=== PATIENT | male | born 1935 | race Caucasian/White ===

== ENCOUNTER 2016-08-19 21:06 | Emergency (ER) | payer MEDICARE, BC ==
[~2016-08-19] VITALS: Ht 177.8 cm; Wt 74.8 kg
--- NOTE | 2016-08-19 21:16 | NUR ---
PT AMBULATORY TO ER BED 5 PT STATES "FELT NUMB AND TINGLY 2 HOURS AFTER SHOWER AND ALMOST PASSED OUT" DENIES CP AND NO SOB NOTED. RR EVEN AND UNLABORED. NO NVD AT THIS TIME. PT NOT DIAPHORETIC. PT GOWNED AND PLACED ON MONITOR. WAITING FOR MD CRAWFORD.
--- NOTE | 2016-08-19 21:29 | NUR ---
DR. BECKER AT BEDSIDE FOR EVAL.
[2016-08-19 21:41] LABS: BASOPHILS # (AUTO) 0.1 /CMM (0.0-0.2); BASOPHILS % (AUTO) 0.3 % (0.0-2.0); EOSINOPHILS # (AUTO) 0.2 /CMM (0.0-0.7); EOSINOPHILS % (AUTO) 0.9 % (0.0-6.0); HEMATOCRIT 35 % (39-51); HEMOGLOBIN 11.5 g/dL (13.5-17.5); LYMPHOCYTES # (AUTO) 0.5 /CMM (0.8-4.8); LYMPHOCYTES % (AUTO) 3.1 % (20.0-44.0); MEAN CORPUSCULAR HEMOGLOBIN 29 PG (26.0-33.0); MEAN CORPUSCULAR HGB CONC 33 g/dl (31.0-36.0); MEAN CORPUSCULAR VOLUME 88 fL (80-96); MONOCYTES # (AUTO) 1.2 /CMM (0.1-1.30); MONOCYTES % (AUTO) 7.1 % (2.0-12.0); NEUTROPHILS # (AUTO) 14.8 /CMM (1.8-8.9); NEUTROPHILS % (AUTO) 88.6 % (43.0-81.0); PLATELET COUNT (AUTO) 205 /CMM (150-450); RDW COEFFICIENT OF VARIATION 13.7 (11.5-15.0); RED BLOOD CELL COUNT(AUTO) 3.92 MIL/uL (4.5-6.0); WHITE BLOOD COUNT (AUTO) 16.7 K/uL (4.3-11.0)
[2016-08-19 21:54] LABS: INR 0.96 (0.87-1.13); PROTHROMBIN TIME 10.2 SECS (9.5-12.7)
[2016-08-19 21:58] LABS: TROPONIN I < 0.017 ng/mL (0.00-0.056)
--- NOTE | 2016-08-19 22:18 | NUR ---
PT RETURNED FROM CT.
[2016-08-19 22:58] LABS: CALCIUM, SERUM 8.6 mg/dL (8.5-10.1); CARBON DIOXIDE 23 mmol/L (21-32); CHLORIDE 102 mmol/L (98-107); CREATININE 1.4 mg/dL (0.6-1.3); GLUCOSE 149 mg/dL (74-106); POTASSIUM 3.7 mmol/L (3.5-5.1); SODIUM SERUM 136 mmol/L (136-145); UREA NITROGEN, BLOOD 23 mg/dL (7-18)
[2016-08-19 23:05] LABS: ALANINE AMINOTRANSFERASE 27 U/L (12-78); ALKALINE PHOSPHATASE 86 U/L (46-116); ASPARTATE AMINOTRANSFERASE 14 U/L (15-37); BILIRUBIN,DIRECT 0.2 mg/dL (0.0-0.2); BILIRUBIN,TOTAL 0.8 mg/dL (0.2-1.0); TOTAL PROTEIN, SERUM 6.7 g/dL (6.4-8.2)
--- NOTE | 2016-08-19 23:25 | NUR ---
URINE COLLECTED. SENT TO LAB.
[2016-08-19 23:49] LABS: BILIRUBIN,URINE NEGATIVE (NEGATIVE); BLOOD, URINE 2+ Ery/uL (NEGATIVE); COLOR,URINE YELLOW (YELLOW); KETONES,URINE NEGATIVE (NEGATIVE); LEUKOCYTE ESTERASE ,URINE 2+ (NEGATIVE); NITRITE, URINE NEGATIVE (NEGATIVE); PROTEIN,URINE 1+ mg/dl (NEGATIVE); UGLUCOSE NEGATIVE (NEGATIVE); UROBILINOGEN,URINE 0.2 EU/dL (0.2)
[2016-08-19 23:51] LABS: APPEARANCE,URINE HAZY (CLEAR)
[2016-08-20 00:01] LABS: ADD URINE CULTURE YES; BACTERIA,URINE 1+ /HPF (None Seen); MUCUS,URINE Few /LPF (None Seen); SQUAMOUS EPITHELIAL CELL,UR Few /HPF (None Seen); WBC,URINE 51-80 /HPF (0-3)
--- NOTE | 2016-08-20 00:05 | NUR ---
DR. JIMENEZ AT BEDSIDE FOR EVAL.
--- NOTE | 2016-08-20 00:12 | NUR ---
IV removed. Catheter intact and site benign. Pressure and 4x4 applied to site. No bleeding noted. Patient discharged to home in stable condition. Written and verbal after care instructions given. Patient verbalizes understanding of instruction. ambulatory with a steady gait. instructed not to drive. pt verbalize understanding.
[2016-08-20 00:13] VITALS: BP 138/78
== END 2016-08-20 00:13 | disposition home or self-care (01) ==
LOC: ER 21:09
DX: R55 Syncope and collapse (principal); E11.9 Type 2 diabetes mellitus without complications; E78.00 Pure hypercholesterolemia, unspecified; F32.9 Major depressive disorder, single episode, unspecified; F41.9 Anxiety disorder, unspecified; I10 Essential (primary) hypertension; K21.9 Gastro-esophageal reflux disease without esophagitis; R20.2 Paresthesia of skin; R51 Headache
CPT/HCPCS: 36415; 70450; 71010; 80048; 80076; 81001; 82962; 84484; 85025; 85730; 93005; 99285; A4606; 81000-TC; 87086-TC; Z7610

== ENCOUNTER 2016-08-23 20:25 | Inpatient (IN) | payer MEDICARE, BC ==
[~2016-08-23] VITALS: Ht 177.8 cm; Wt 79.4 kg
--- NOTE | 2016-08-23 21:03 | NUR ---
PT BIB SELF C/O "THE SAME ON THURSDAY" INCLUDING "PALPITATIONS, BUT MY HEART WAS CHECKED OUT ON THURSDAY", "SHORTNESS OF BREATH BUT I CAN BREATH" AND "SEVERE NAUSEA". DENIES DIARRHEA. RESP EVEN UNLABORED. SKIN WARM NONDIAPHORETIC. PT REPORTS THAT HE HAS BEEN TAKING CIPRO 500MG PO BID X3 WEEKS. AMBULATORY WITH STEADY GAIT. IN ER BED 10 ON MONITOR.
[2016-08-23] MEDS ORDERED: ONDANSETRON 4 MG TAB.RAPDIS SL ONE (21:30)
[2016-08-23] MEDS ORDERED: ONDANSETRON 4 MG TAB.RAPDIS ONE (21:32)
[2016-08-23] MEDS ORDERED: ONDANSETRON HCL/PF 4 MG/2 ML VIAL ONE (22:07)
[2016-08-23] MEDS ORDERED: IV NS 0.9% 1,000 ML ONE (22:07)
[2016-08-23] MEDS ORDERED: IV SET PRIMARY 1 EA INFUS.SET MC ONE (22:07)
[2016-08-23] MEDS ORDERED: ONDANSETRON HCL/PF 4 MG/2 ML VIAL IVP ONE (22:30)
[2016-08-23] MEDS ORDERED: IV NS 0.9% 1,000 ML BAG IV ONE (22:30)
--- NOTE | 2016-08-23 22:35 | NUR ---
PT RESTING QUIETLY IN BED, REPORTED NAUSEA BUT NO FURTHER VOMITING PRIOR TO SECOND DOSE OF ZOFRAN. IV ACCESS ESTABLISHED, LABS DRAWN FROM LINE AND SENT TO LAB. URINE SAMPLE PROVIDED VIA CLEAN CATCH. PTS Consulting PAGED.
[2016-08-23 22:42] LABS: APPEARANCE,URINE SL CLOUDY (CLEAR); BILIRUBIN,URINE NEGATIVE (NEGATIVE); BLOOD, URINE 2+ Ery/uL (NEGATIVE); COLOR,URINE YELLOW (YELLOW); EOSINOPHILS # (AUTO) 0.1 /CMM (0.0-0.7); EOSINOPHILS % (AUTO) 0.4 % (0.0-6.0); HEMATOCRIT 31 % (39-51); HEMOGLOBIN 10.5 g/dL (13.5-17.5); KETONES,URINE NEGATIVE (NEGATIVE); LEUKOCYTE ESTERASE ,URINE 2+ (NEGATIVE); LYMPHOCYTES # (AUTO) 0.3 /CMM (0.8-4.8); LYMPHOCYTES % (AUTO) 1.9 % (20.0-44.0); MEAN CORPUSCULAR HEMOGLOBIN 30 PG (26.0-33.0); MEAN CORPUSCULAR HGB CONC 34 g/dl (31.0-36.0); MEAN CORPUSCULAR VOLUME 89 fL (80-96); MONOCYTES % (AUTO) 6.4 % (2.0-12.0); NEUTROPHILS # (AUTO) 13.6 /CMM (1.8-8.9); NEUTROPHILS % (AUTO) 91.3 % (43.0-81.0); NITRITE, URINE NEGATIVE (NEGATIVE); PH,URINE 5.5 (5.0-8.0); PLATELET COUNT (AUTO) 227 /CMM (150-450); PROTEIN,URINE 1+ mg/dl (NEGATIVE); RDW COEFFICIENT OF VARIATION 13.9 (11.5-15.0); RED BLOOD CELL COUNT(AUTO) 3.49 MIL/uL (4.5-6.0); UGLUCOSE NEGATIVE (NEGATIVE); UROBILINOGEN,URINE 0.2 EU/dL (0.2); WHITE BLOOD COUNT (AUTO) 14.9 K/uL (4.3-11.0)
[2016-08-23 22:53] LABS: CALCIUM, SERUM 8.1 mg/dL (8.5-10.1); POTASSIUM 3.8 mmol/L (3.5-5.1)
[2016-08-23 22:56] LABS: ADD URINE CULTURE YES; BACTERIA,URINE None seen /HPF (None Seen); WBC,URINE 21-50 /HPF (0-3)
[2016-08-23 22:57] LABS: SQUAMOUS EPITHELIAL CELL,UR Rare /HPF (None Seen)
[2016-08-23 22:58] LABS: OTHER CASTS, URINE WBC CASTS 1+ /LPF (None Seen)
[2016-08-23 23:00] LABS: ALBUMIN 2.4 g/dL (3.4-5.0); BILIRUBIN,DIRECT 0.1 mg/dL (0.0-0.2); BILIRUBIN,TOTAL 0.6 mg/dL (0.2-1.0); TOTAL PROTEIN, SERUM 6.5 g/dL (6.4-8.2)
--- NOTE | 2016-08-23 23:12 | NUR ---
US TECH AT BEDSIDE
[2016-08-23 23:14] LABS: INR 1.03 (0.87-1.13)
--- NOTE | 2016-08-23 23:42 | NUR ---
PANEL CALL PLACED TO [facility]; VERONIQUE LABORER ELECTROPLATING. ENDORSED TO YOLANDA FIRST AID DIRECTOR FOR ADMISSION.
[2016-08-23] MEDS ORDERED: CEFTRIAXONE 1GM BAG (ER ONLY) 50 ML IV ONE (23:43)
[2016-08-23] MEDS ORDERED: IV SET PRIMARY PUMP SET 1 EA INFUS.SET MC ONE (23:43)
--- NOTE | 2016-08-23 23:44 | NUR ---
called nursing sup. for ms bed
--- NOTE | 2016-08-23 23:46 | NUR ---
DR RODRIGUES ON PHONE WITH VERONIQUE WING
[2016-08-24] MEDS ORDERED: CEFTRIAXONE 1GM BAG (ER ONLY) 1 GM/50 ML PIGGYBACK IV ONE
[2016-08-24 00:15] VITALS: BP 139/72
--- NOTE | 2016-08-24 00:15 | NUR ---
RN NOTES: ADMITTED FROM ER VIA GURNEY ACCOMPANIED BY RN WITH DX:UTI,C/C NAUSEA X 5 HOURS AND ABDOMINAL PAIN,A/OX4,VERBALLY RESPONSIVE.PER PATIENT HE WAS IN [facility] LAST THURSDAY AND STARTED TAKING CIPRO,IT WAS INEFFECTIVE THEREFORE HE GO BACK TO ER TODAY.SKIN AND BODY ASSESSMENT DONE, SKIN IS INTACT EXCEPT FOR BROWN SKIN PIGMENTATION ALL OVER HIS BODY AND OLD SURGICAL SCAR ON LLE AND RIGHT SHOULDER,PERIPHERAL LINE LFA G#20,RECEIVED IV NS 1L,ROCEPHINE 1G/IV,ZOFRAN IV IN ER,NURSING CARE RENDERED, ORIENTED TO UNIT AND STAFF, FALL SAFETY, ASPIRATION AND UNIVERSAL PRECAUTION OBSERVE, BED LOW AND LOCKED, CALL LIGHT WITH IN REACH,SIDE RAILS UP X 2,BED ALARM ON.
--- NOTE | 2016-08-24 01:00 | NUR ---
RN NOTES: PATIENT REQUEST FOR SLEEPING PILL, HE HAS DISCOMFORT IN HIS RIGHT HAND PAIN 2/,HE SAID IF HE GET SLEEPING PILL HE WILL BE ABLE TO REST AND SLEEP;WHEN ASKED REGARDING HIS LIST OF HOME MEDICATION HE SAID HE WILL ASK HIS SON TO BRING THE LIST TOMORROW. -CALL MADE TO F/U ADMISSION ORDERS WITH KASSANDRA Doan(STRAND FORMING MACHINE OPERATOR),STILL AWAITING FOR HER ORDERS TO BE FINISH.
[2016-08-24] MEDS ORDERED: ZOLPIDEM TARTRATE 5 MG TABLET PO PRN (01:30)
[2016-08-24] MEDS ORDERED: ACETAMINOPHEN 325 MG TABLET PO PRN (01:30)
[2016-08-24] MEDS ORDERED: Z GUARD REMEDY 2 OZ OINT TP PRN (01:30)
[2016-08-24] MEDS ORDERED: ONDANSETRON HCL/PF 4 MG/2 ML VIAL IVP PRN (01:30)
[2016-08-24] MEDS ORDERED: MAGNESIUM HYDROXIDE 30 ML UDC PO PRN (01:30)
[2016-08-24] MEDS ORDERED: DEXTROSE 50%-WATER 50 ML DISP.SYRIN IV PRN (01:30)
[2016-08-24] MEDS ORDERED: IV NS 0.9% 1,000 ML ONE (02:00)
[2016-08-24] MEDS ORDERED: IV SET PRIMARY PUMP SET 1 EA INFUS.SET MC ONE (02:01)
[2016-08-24] MEDS ORDERED: ZOLPIDEM TARTRATE 5 MG TABLET ONE (02:04)
[2016-08-24] MEDS: IV NS 0.9% 1,000 ML IV PRN ×2 (02:10→14:56)
--- NOTE | 2016-08-24 02:15 | NUR ---
RN NOTES: - AROUND 0150 PRN SLEEPING PILL GIVEN PER PATIENT REQUEST . -IV NS AT 75 ML/HR STARTED AT 0213.
--- NOTE | 2016-08-24 03:10 | NUR ---
RN NOTES: IN DEEP SLEEP,IVF ONGOING, KEPT COMFORTABLE IN BED.NO PAIN OR DISCOMFORT.CALL LIGHT WITHIN REACH.
[2016-08-24] MEDS ORDERED: HYDROCODONE/APAP 5/325MG 1 EACH TABLET ONE (06:21)
[2016-08-24] MEDS: BLOOD SUGAR DIAGNOSTIC 1 EACH STRIP IN SCH ×4 (06:26→22:19)
[2016-08-24] MEDS: HYDROCODONE/APAP 5/325MG 1 EACH TABLET PO PRN ×4 (06:27→21:14)
[2016-08-24] MEDS: INSULIN REGULAR, HUMAN 100 UNIT/ML 3 ML VIAL SQ PRN ×2 (06:29→22:19)
--- NOTE | 2016-08-24 06:35 | NUR ---
RN NOTES: BLOOD SUGAR CHECK-147, INSULIN 2 UNITS GIVEN PER SCALE,COMPLAINED OF PAIN 7/10 ON THE RIGHT HAND, REQUEST FOR PRN PAIN MEDICATION BP-120/70 WA-70.KEPT COMFORTABLE IN BED.NEEDS ATTENDED.CALL LIGHT WITHIN REACH.
--- NOTE | 2016-08-24 06:55 | NUR ---
RN NOTES: PER PATIENT PAIN DECREASE 4/10, ABLE TO SLEEP AT SHORT INTERVALS, ENDORSE TO MORNING SHIFT FOR CONTINUITY OF CARE AND MONITORING FOR SIGN OF HYPER/HYPOGLYCEMIA.CALL LIGHT WITHIN REACH
[2016-08-24 07:57] LABS: MAGNESIUM 2.3 mg/dL (1.8-2.4); PHOSPHORUS 3.6 mg/dL (2.5-4.9)
[2016-08-24 08:00] VITALS: BP 116/49
--- NOTE | 2016-08-24 08:00 | NUR ---
MS RN NOTE PT. AWAKE, ALERT AND ORIENTED X4. DENIED PAIN AND SOB. VS STABLE. SIDE RAILS UP. CALL LIGHT WITHIN REACH. MONITOR CLOSELY.
[2016-08-24] MEDS ORDERED: FESO8TAB PO (08:01)
[2016-08-24] MEDS ORDERED: METO-302 PO (08:01)
[2016-08-24] MEDS ORDERED: ZOLP10TA6 PO (08:01)
[2016-08-24] MEDS ORDERED: MELO-270 PO (08:01)
[2016-08-24] MEDS ORDERED: METF500T4 PO (08:01)
[2016-08-24] MEDS ORDERED: PANT40TA4 PO (08:01)
[2016-08-24] MEDS ORDERED: ATOR40TA PO (08:01)
[2016-08-24] MEDS ORDERED: SILO8CAP PO (08:01)
[2016-08-24] MEDS ORDERED: LORA1TAB82 PO (08:01)
[2016-08-24] MEDS ORDERED: GABA-534 PO (08:01)
[2016-08-24] MEDS ORDERED: CITA20TA11 PO (08:01)
[2016-08-24] MEDS: PANTOPRAZOLE 40 MG TABLET.DR PO SCH (08:32)
[2016-08-24] MEDS ORDERED: ZOLPIDEM TARTRATE 10 MG TABLET PO PRN (09:30)
[2016-08-24] MEDS: METOPROLOL SUCCINATE 25 MG TAB.SR.24H PO SCH (12:45)
[2016-08-24 16:00] VITALS: BP 122/62
[2016-08-24] MEDS: CITALOPRAM HYDROBROMIDE 20 MG TABLET PO SCH (17:07)
--- NOTE | 2016-08-24 19:00 | NUR ---
CLOSING SHIFT PT. AWAKE, ALERT AND ORIENTED X4. VS STABLE. NO SOB. AMBULATED ON HALLWAY WITHOUT ANY DISTRESS. NS@75ML/HR IVF. CALL LIGHT WITHIN REACH. SIDE RAILS UP. MONITOR CLOSELY.
--- NOTE | 2016-08-24 19:35 | NUR ---
MS RN NOTE RECEIVED PATIENT FROM DAY SHIFT, PATIENT IS ALERT AND ORIENTEDX4, DENIES RESPIRATORY DISTRESS AND COMPLAINS OF PAIN ON HIS FINGERS. IV ON LEFT FA IS PATENT AND INTACT, NS IS RUNNING FOR DEHYDRATION. AMBULATORY. SRX2, BED IN LOW POSITION, CALL LIGHT WITHIN REACH, WILL CONTINUE TO MONITOR PATIENT.
[2016-08-24 19:49] VITALS: BP 124/63
--- NOTE | 2016-08-24 21:15 | NUR ---
MS RN NOTE PATIENT COMPLAINS OF PAIN ON HIS FINGER 12/08, NORCO 5/325MG PO GIVEN. WILL CONTINUE TO MONITOR EFFECTIVENESS.
[2016-08-24] MEDS ORDERED: SECONDARY IV SET 1 EA INFUS.SET MC ONE (22:09)
[2016-08-24] MEDS: CEFTRIAXONE 1 G in IV D5W 50 ML IV SCH (22:20)
[2016-08-24] MEDS ORDERED: CEFTRIAXONE 1 G VIAL IM SCH (23:00)
[2016-08-25] MEDS: IV NS 0.9% 1,000 ML IV PRN (05:56)
[2016-08-25] MEDS: BLOOD SUGAR DIAGNOSTIC 1 EACH STRIP IN SCH ×4 (06:07→22:12)
--- NOTE | 2016-08-25 06:24 | NUR ---
MS RN NOTE PATIENT IS RESTING IN BED COMFORTABLY, ON O2 NC CURRENTLY, OXYGEN SAT IS 94% WITH 3L/MIN, PT DENIES S/S OF RESPIRATORY DISTRESS AND PAIN. IV ON LEFT FA IS PATENT AND INTACT, FLUID IS RUNNING. WILL ENDORSE TO DAY SHIFT NURSE FOR DAILY.
[2016-08-25 07:11] LABS: CALCIUM, SERUM 7.6 mg/dL (8.5-10.1); CREATININE 2.3 mg/dL (0.6-1.3); POTASSIUM 4.5 mmol/L (3.5-5.1)
[2016-08-25 07:33] LABS: BASOPHILS % (AUTO) 0.1 % (0.0-2.0); EOSINOPHILS # (AUTO) 0.3 /CMM (0.0-0.7); HEMATOCRIT 30 % (39-51); LYMPHOCYTES # (AUTO) 0.5 /CMM (0.8-4.8); LYMPHOCYTES % (AUTO) 3.6 % (20.0-44.0); MEAN CORPUSCULAR HEMOGLOBIN 30 PG (26.0-33.0); MEAN CORPUSCULAR HGB CONC 33 g/dl (31.0-36.0); MEAN CORPUSCULAR VOLUME 89 fL (80-96); MONOCYTES % (AUTO) 7.3 % (2.0-12.0); NEUTROPHILS # (AUTO) 11.6 /CMM (1.8-8.9); PLATELET COUNT (AUTO) 235 /CMM (150-450); RDW COEFFICIENT OF VARIATION 13.7 (11.5-15.0); RED BLOOD CELL COUNT(AUTO) 3.38 MIL/uL (4.5-6.0); WHITE BLOOD COUNT (AUTO) 13.4 K/uL (4.3-11.0)
[2016-08-25 08:00] VITALS: BP 134/69
--- NOTE | 2016-08-25 08:10 | NUR ---
MS RN RECEIVED ON BED, AWAKE,ALERT,ORIENTED X4,NOT IN ANY FORM OF DISTRESS, RESPIRATIONS EVEN AND UNLABORED,NO SOB NOTED. LUNGS ARE CLEAR,ABDOMEN SOFT,POSITIVE BOWEL SOUNDS, DENIES PAIN AT THIS TIME,ALL NEEDS ATTENDED.
--- NOTE | 2016-08-25 08:55 | NUR ---
MS BLUM BREAKFAST SERVED,DUE MEDS GIVEN,TOLERATED WELL.
[2016-08-25] MEDS ORDERED: PANTOPRAZOLE 40 MG TABLET.DR PO SCH (09:00)
[2016-08-25] MEDS: PANTOPRAZOLE 40 MG TABLET.DR PO SCH (09:04)
[2016-08-25] MEDS: GABAPENTIN 300 MG CAPSULE PO SCH (09:04)
[2016-08-25] MEDS: CITALOPRAM HYDROBROMIDE 20 MG TABLET PO SCH ×2 (09:04→17:42)
[2016-08-25] MEDS: ATORVASTATIN 40 MG TABLET PO SCH (09:04)
[2016-08-25] MEDS: METOPROLOL SUCCINATE 25 MG TAB.SR.24H PO SCH (09:05)
[2016-08-25] MEDS ORDERED: NA PHOS,M-B/NA PHOS,DI-BA 1 EA ENEMA RC PRN (14:00)
[2016-08-25 16:00] VITALS: BP 146/81
--- NOTE | 2016-08-25 18:00 | NUR ---
ms rn bs 0 103 - no coverage given.
--- NOTE | 2016-08-25 19:00 | NUR ---
rn fleat enema given, effective w/ output.
--- NOTE | 2016-08-25 19:35 | NUR ---
MS RN NOTE RECEIVED PATIENT FROM DAY SHIFT, PATIENT IS ALERT AND ORIENTEDX4, DENIES RESPIRATORY DISTRESS OR PAIN AT THIS TIME. PATIENT HAD ENEMA, COMPLAINS OF DISCOMFORT ON ABDOMEN, MADE BM WELL. IV ON LEFT FA IS PATENT AND INTACT, HL ONLY. SRX2, BED IN LOW POSITION, CALL LIGHT WITHIN REACH, WILL CONTINUE TO MONITOR PATIENT.
[2016-08-25] MEDS: HYDROCODONE/APAP 5/325MG 1 EACH TABLET PO PRN (20:11)
[2016-08-25 20:34] VITALS: BP 147/82
[2016-08-25] MEDS: CEFTRIAXONE 1 G in IV D5W 50 ML IV SCH (22:12)
[2016-08-26] MEDS: BLOOD SUGAR DIAGNOSTIC 1 EACH STRIP IN SCH (05:59)
[2016-08-26] MEDS: HYDROCODONE/APAP 5/325MG 1 EACH TABLET PO PRN (06:00)
--- NOTE | 2016-08-26 06:00 | NUR ---
MS RN NOTE PATIENT COMPLAINS OF SEVERE HEADACHE, NORCO 5-325 PO GIVEN. WILL MONITOR FOR EFFECTIVENESS.
--- NOTE | 2016-08-26 06:46 | NUR ---
MS RN NOTE PATIENT IS RESTING IN BED COMFORTABLY, STILL COMPLAINS OF MILD HEADACHE, IV ON LEFT WRIST IS PATENT AND INTACT, HL ONLY. NO S/S OF RESPIRATORY DISTRESS. WILL ENDORSE TO DAY SHIFT FOR DAILY.
[2016-08-26 07:28] LABS: BASOPHILS % (AUTO) 0.1 % (0.0-2.0); EOSINOPHILS # (AUTO) 0.2 /CMM (0.0-0.7); EOSINOPHILS % (AUTO) 1.6 % (0.0-6.0); HEMATOCRIT 30 % (39-51); HEMOGLOBIN 9.9 g/dL (13.5-17.5); LYMPHOCYTES # (AUTO) 0.6 /CMM (0.8-4.8); LYMPHOCYTES % (AUTO) 4.6 % (20.0-44.0); MEAN CORPUSCULAR HEMOGLOBIN 30 PG (26.0-33.0); MEAN CORPUSCULAR HGB CONC 34 g/dl (31.0-36.0); MEAN CORPUSCULAR VOLUME 90 fL (80-96); MONOCYTES # (AUTO) 1.1 /CMM (0.1-1.30); MONOCYTES % (AUTO) 8.7 % (2.0-12.0); NEUTROPHILS # (AUTO) 10.8 /CMM (1.8-8.9); PLATELET COUNT (AUTO) 245 /CMM (150-450); RDW COEFFICIENT OF VARIATION 13.7 (11.5-15.0); WHITE BLOOD COUNT (AUTO) 12.7 K/uL (4.3-11.0)
[2016-08-26 07:30] LABS: CALCIUM, SERUM 8.1 mg/dL (8.5-10.1); CREATININE 2.3 mg/dL (0.6-1.3); POTASSIUM 4.1 mmol/L (3.5-5.1)
--- NOTE | 2016-08-26 07:48 | NUR ---
MS RN OPENING NOTES: PATIENT IS RESTING IN BED COMFORTABLY. PATIENT ALERT AND ORIENTED X4. IV ON LEFT WRIST IS PATENT AND INTACT, HL ONLY. NO S/S OF SOB AND DISTRESS RESPIRATORY DISTRESS. PATIENT AMBULATORY AND SKIN INTACT.
[2016-08-26 07:50] VITALS: BP 142/66
[2016-08-26] MEDS: PANTOPRAZOLE 40 MG TABLET.DR PO SCH (08:07)
[2016-08-26 08:08] VITALS: BP 142/66
[2016-08-26] MEDS: METOPROLOL SUCCINATE 25 MG TAB.SR.24H PO SCH (08:08)
[2016-08-26] MEDS: GABAPENTIN 300 MG CAPSULE PO SCH (08:09)
[2016-08-26] MEDS: CITALOPRAM HYDROBROMIDE 20 MG TABLET PO SCH (08:09)
[2016-08-26] MEDS: ATORVASTATIN 40 MG TABLET PO SCH (08:09)
--- NOTE | 2016-08-26 10:50 | NUR ---
MS CHILDCARE PROVIDER NOTES Discharge instructions given to patient and able to understand instructions. Patient is alert and oriented x 4 verbally responsive and able to make all needs known. Dr. Quiñonez on site and ordered for discharge patient. Prescription copied and given to patient. Health education provided. Ambulatory. IV discontinued and pressured applied to prevent from bleeding. Patient left via ambulatory and in stable condition. Vital signs checked and recorded. No complaint of pain or discomfort, nor chest pain. MD and charge nurse aware. Patient picked up by his son Steve. Skin is intact. Patient already had his vaccinations, pneumonia and flu vaccine 01/2016.
== END 2016-08-26 10:50 | disposition home or self-care (01) | DRG 689 ==
LOC: ER 20:27 → MED 08-24 00:05
PROVIDERS: ADMIT Nurse Practitioner Acute Care; ATTEND Student in an Organized Health Care Education/Training Program
DX: N39.0 Urinary tract infection, site not specified (principal); N17.0 Acute kidney failure with tubular necrosis; E78.5 Hyperlipidemia, unspecified; K80.20 Calculus of gallbladder without cholecystitis without obstruction; E11.22 Type 2 diabetes mellitus with diabetic chronic kidney disease; I12.9 Hypertensive chronic kidney disease with stage 1 through stage 4 chronic kidney disease, or unspecified chronic kidney disease; N18.9 Chronic kidney disease, unspecified; E11.42 Type 2 diabetes mellitus with diabetic polyneuropathy; N40.1 Benign prostatic hyperplasia with lower urinary tract symptoms; N39.498 Other specified urinary incontinence; K59.09 Other constipation; K21.9 Gastro-esophageal reflux disease without esophagitis; Z79.84 Long term (current) use of oral hypoglycemic drugs; Z86.73 Personal history of transient ischemic attack (TIA), and cerebral infarction without residual deficits
CPT/HCPCS: 36415; 76705-TC; 80048-TC; 80061-TC; 80076-TC; 81000-TC; 82150-TC; 82962-TC; 83690-TC; 83735-TC; 84100-TC; 85025-TC; 85730-TC; 87040-TC; 87081-TC; 87086-TC; 87186-TC; 94799-TC; J0696; J1815; J2405; J7030; J7060; Q0162; Z7610

== ENCOUNTER 2016-11-28 12:16 | Outpatient (CLI) | payer MEDICARE, BC ==
[~2016-11-28 12:16] MED LIST: ATOR40TA PO; CITA20TA11 PO; FESO8TAB PO; GABA-534 PO; LORA1TAB82 PO; MELO-270 PO; METF500T4 PO; METO-302 PO; PANT40TA4 PO; SILO8CAP PO; ZOLP10TA6 PO
[2016-11-28 13:16] LABS: CHOLESTEROL 116 mg/dL (<200); CREATINE KINASE, TOTAL 69 U/L (39-308); HDL CHOLESTEROL 53 mg/dL (40-60); LDL 45 mg/dL (0-99); TRIGLYCERIDES 55 mg/dL (30-150)
== END 2016-11-28 23:59 | disposition home or self-care (01) ==
LOC: LAB 12:16
DX: E78.5 Hyperlipidemia, unspecified (principal)
CPT/HCPCS: 36415; 80061-TC; 82550-TC

== ENCOUNTER 2019-03-06 18:10 | Emergency (ER) | payer MEDICARE, BC ==
[~2019-03-06] VITALS: Ht 175.3 cm; Wt 84.4 kg
[~2019-03-06 18:10] MED LIST changes: -CITA20TA11 PO; +CITA20TA16 PO; +LORA-259 PO; -LORA1TAB82 PO; +MELO-105 PO; -MELO-270 PO; +METF-440 PO; -METF500T4 PO; -METO-302 PO; +METO-356 PO; -SILO8CAP PO; +SILO8CAP2 PO
[2019-03-06] MEDS ORDERED: ONDANSETRON HCL/PF 4 MG/2 ML VIAL IVP ONE (18:30)
[2019-03-06] MEDS ORDERED: IV NS 0.9% 1,000 ML BAG IV ONE (18:30)
--- NOTE | 2019-03-06 18:30 | NUR ---
DENISA, FROM [facility], C/O DIZZINESS HAD A NEAR SYNCOPAL EPISODE PER EMS, TOOK EDIBLES AND WINE. ON ROOM AIR, BREATHING EVENLY AND UNLABORED. CONNECTED TO THE MONITOR AND PULSE OX. KEPT COMFORTABLE, WILL CONTINUE TO MONITOR ACCORDINGLY.
[2019-03-06] MEDS ORDERED: ONDANSETRON HCL/PF 4 MG/2 ML VIAL ONE (18:39)
[2019-03-06 18:53] LABS: BASOPHILS % (AUTO) 0.5 % (0.0-2.0); EOSINOPHILS % (AUTO) 3.4 % (0.0-6.0); HEMATOCRIT 38 % (39-51); LYMPHOCYTES # (AUTO) 2.7 /CMM (0.8-4.8); LYMPHOCYTES % (AUTO) 29.2 % (20.0-44.0); MEAN CORPUSCULAR HGB CONC 34 g/dl (31.0-36.0); MEAN CORPUSCULAR VOLUME 92 fL (80-96); MONOCYTES # (AUTO) 1.1 /CMM (0.1-1.30); MONOCYTES % (AUTO) 11.6 % (2.0-12.0); NEUTROPHILS # (AUTO) 5.1 /CMM (1.8-8.9); NEUTROPHILS % (AUTO) 55.3 % (43.0-81.0); PLATELET COUNT (AUTO) 193 /CMM (150-450); RED BLOOD CELL COUNT(AUTO) 4.13 MIL/uL (4.5-6.0); WHITE BLOOD COUNT (AUTO) 9.1 K/uL (4.3-11.0)
[2019-03-06 19:00] LABS: CALCIUM, SERUM 8.7 mg/dL (8.5-10.1); CARBON DIOXIDE 23 mmol/L (21-32); CHLORIDE 105 mmol/L (98-107); CREATININE 1.8 mg/dL (0.6-1.3); GLUCOSE 135 mg/dL (74-106); POTASSIUM 3.9 mmol/L (3.5-5.1); SODIUM SERUM 140 mmol/L (136-145); UREA NITROGEN, BLOOD 26 mg/dL (7-18)
[2019-03-06 19:06] LABS: ALANINE AMINOTRANSFERASE 25 U/L (12-78); ALBUMIN 3.6 g/dL (3.4-5.0); ALKALINE PHOSPHATASE 84 U/L (46-116); ASPARTATE AMINOTRANSFERASE 21 U/L (15-37); BILIRUBIN,DIRECT 0.2 mg/dL (0.0-0.2); BILIRUBIN,TOTAL 0.8 mg/dL (0.2-1.0)
--- NOTE | 2019-03-06 19:08 | NUR ---
report given to Missy BLUM for lilly.
--- NOTE | 2019-03-06 19:19 | NUR ---
RECEIVED REPORT FORM KAYLIN BLUM, PT IN BED, RESTING COMFORTABLY, NO DISCOMFORT AT THIS TIME, AWAITING TRANSPORT ARRANGEMENT BACK TO [facility] Addendum: 03/06/19 at 1920 by RAZIA RECEIVED PT REPORT FROM KAYLIN BLUM, PT IN BED RESTING COMFORTABLY, WAITING FOR XRAY RESULTS
--- NOTE | 2019-03-06 20:38 | NUR ---
Patient discharged to home in stable condition. Written and verbal after care instructions given. Patient verbalizes understanding of instruction.
[2019-03-06 20:39] VITALS: BP 105/53
== END 2019-03-06 20:39 | disposition home or self-care (01) ==
LOC: ER 18:14
DX: E86.0 Dehydration (principal); R55 Syncope and collapse; T51.91XA Toxic effect of unspecified alcohol, accidental (unintentional), initial encounter; I10 Essential (primary) hypertension; E78.00 Pure hypercholesterolemia, unspecified; K21.9 Gastro-esophageal reflux disease without esophagitis; N40.0 Benign prostatic hyperplasia without lower urinary tract symptoms; E11.9 Type 2 diabetes mellitus without complications; F32.9 Major depressive disorder, single episode, unspecified; F41.9 Anxiety disorder, unspecified; G47.00 Insomnia, unspecified; Z98.890 Other specified postprocedural states; Z79.899 Other long term (current) drug therapy; Z79.84 Long term (current) use of oral hypoglycemic drugs
CPT/HCPCS: 36415; 71045; 80048; 80076; 82962; 84484; 85025; 85730; 93005; 96361; 96374; 99284; J2405; J7030

== ENCOUNTER 2021-04-21 12:42 | Emergency (ER) | payer MEDICARE, BC ==
[~2021-04-21] VITALS: Ht 175.3 cm; Wt 79.4 kg
[~2021-04-21 12:42] MED LIST changes: -METO-356 PO; +METO25TA4 PO; -PANT40TA4 PO; +PANT40TA49 PO
--- NOTE | 2021-04-21 13:01 | NUR ---
BIB FAMILY MEMBER FOR C/O L KNEE PAIN "BUCKLLED IT" WHILE PLAYING PICKLEBALL 1 1/2 AGO. RATES PAIN 09/08. NOTED THAT LEFT KNEE HAS LIGHT SWELLING. WILL CONTINUE TO MONITOR THE PATIENT.
--- NOTE | 2021-04-21 13:04 | NUR ---
DR SPENCER AT THE BEDSIDE
--- NOTE | 2021-04-21 13:37 | NUR ---
X-RAY TECH AT THE BEDSIDE
[2021-04-21 13:58] VITALS: BP 137/84
--- NOTE | 2021-04-21 13:58 | NUR ---
Patient discharged to home in stable condition. Written and verbal after care instructions given. Patient verbalizes understanding of instruction.
== END 2021-04-21 13:58 | disposition home or self-care (01) ==
LOC: ER 12:49
DX: S83.8X2A Sprain of other specified parts of left knee, initial encounter (principal); I10 Essential (primary) hypertension; E78.00 Pure hypercholesterolemia, unspecified; K21.9 Gastro-esophageal reflux disease without esophagitis; E11.9 Type 2 diabetes mellitus without complications; F32.9 Major depressive disorder, single episode, unspecified; F41.9 Anxiety disorder, unspecified; G47.00 Insomnia, unspecified; Z98.890 Other specified postprocedural states; Z79.899 Other long term (current) drug therapy; Z79.84 Long term (current) use of oral hypoglycemic drugs; X50.1XXA Overexertion from prolonged static or awkward postures, initial encounter; Y93.89 Activity, other specified; Y92.89 Other specified places as the place of occurrence of the external cause; Y99.8 Other external cause status
CPT/HCPCS: 73564-TC

== ENCOUNTER 2022-03-08 12:23 | Inpatient (IN) | payer MEDICARE, BC ==
[~2022-03-08] VITALS: Ht 177.8 cm; Wt 77.6 kg
--- NOTE | 2022-03-08 13:08 | NUR ---
IV ESTABLISHED R AC 20G. LABS DRAWN AND COLLECTED AT BEDSIDE.
--- NOTE | 2022-03-08 13:09 | NUR ---
FRANTZ STEPHENSON COLLECTED AND SENT
[2022-03-08] MEDS ORDERED: LIDOCAINE 1%-EPI 1:100,000 20 ML VIAL ONE (13:11)
--- NOTE | 2022-03-08 13:11 | NUR ---
PT TAKEN TO CT VIA RADHA
[2022-03-08 13:12] LABS: BASOPHILS % (AUTO) 0.4 % (0.0-2.0); EOSINOPHILS % (AUTO) 1.4 % (0.0-6.0); HEMATOCRIT 39 % (39-51); HEMOGLOBIN 13.1 g/dL (13.5-17.5); LYMPHOCYTES # (AUTO) 0.9 K/uL (0.8-4.8); LYMPHOCYTES % (AUTO) 11.2 % (20.0-44.0); MEAN CORPUSCULAR HGB CONC 33 g/dl (31.0-36.0); MEAN CORPUSCULAR VOLUME 92 fL (80-96); MONOCYTES # (AUTO) 0.5 K/uL (0.1-1.30); MONOCYTES % (AUTO) 6.5 % (2.0-12.0); NEUTROPHILS # (AUTO) 6.3 K/uL (1.8-8.9); NEUTROPHILS % (AUTO) 80.5 % (43.0-81.0); PLATELET COUNT (AUTO) 189 K/uL (150-450); RED BLOOD CELL COUNT(AUTO) 4.28 MIL/uL (4.5-6.0); WHITE BLOOD COUNT (AUTO) 7.8 K/uL (4.3-11.0)
--- NOTE | 2022-03-08 13:18 | NUR ---
PT RETURNED FROM CT VIA [facility]
[2022-03-08 13:30] LABS: CALCIUM, SERUM 8.9 mg/dL (8.5-10.1); CARBON DIOXIDE 27 mmol/L (21-32); CHLORIDE 107 mmol/L (98-107); CREATININE 1.5 mg/dL (0.6-1.3); GLUCOSE 144 mg/dL (74-106); POTASSIUM 4.3 mmol/L (3.5-5.1); SODIUM SERUM 141 mmol/L (136-145); UREA NITROGEN, BLOOD 20 mg/dL (7-18)
[2022-03-08] MEDS ORDERED: ACETAMINOPHEN 325 MG TABLET PO ONE (13:30)
[2022-03-08] MEDS ORDERED: LIDOCAINE 1%-EPI 1:100,000 20 ML VIAL TP ONE (13:30)
--- NOTE | 2022-03-08 13:30 | NUR ---
MOVE SHEET SUBMITTED.
[2022-03-08 13:35] LABS: ALANINE AMINOTRANSFERASE 28 U/L (12-78); ALBUMIN 3.5 g/dL (3.4-5.0); ALKALINE PHOSPHATASE 85 U/L (46-116); ASPARTATE AMINOTRANSFERASE 13 U/L (15-37); BILIRUBIN,DIRECT 0.1 mg/dL (0.0-0.2); BILIRUBIN,TOTAL 0.6 mg/dL (0.2-1.0); TOTAL PROTEIN, SERUM 7.1 g/dL (6.4-8.2)
[2022-03-08] MEDS ORDERED: ACETAMINOPHEN 325 MG TABLET ONE (13:37)
--- NOTE | 2022-03-08 13:51 | NUR ---
X RAY AT BEDSIDE
[2022-03-08] MEDS ORDERED: IV NS 0.9% 1,000 ML IV ONE (14:00)
--- NOTE | 2022-03-08 14:01 | NUR ---
GOT BED 101
--- NOTE | 2022-03-08 14:13 | NUR ---
[facility] CALLED DARKLIGHT INSPECTOR PAGED.
--- NOTE | 2022-03-08 14:38 | NUR ---
REPORT GIVEN TO SOON FOR DAILY
[2022-03-08] MEDS ORDERED: Z GUARD REMEDY 4 OZ OINT TP PRN (15:00)
[2022-03-08] MEDS ORDERED: MAG HYDROX/AL HYDROX/SIMETH 30 ML UDC PO PRN (15:00)
[2022-03-08] MEDS ORDERED: ONDANSETRON HCL/PF 4 MG/2 ML VIAL IVP PRN (15:00)
[2022-03-08] MEDS ORDERED: IV NS 0.9% 1,000 ML IV PRN (15:00)
[2022-03-08] MEDS ORDERED: ACETAMINOPHEN 325 MG TABLET PO PRN (15:00)
[2022-03-08] MEDS ORDERED: MAGNESIUM HYDROXIDE 30 ML UDC PO PRN (15:00)
--- NOTE | 2022-03-08 15:30 | NUR ---
RN NOTE RECEIVED PT ON RADHA FROM ED. PATIENT IS AOX3, BREATHING ON RA AT 97%. NO SOB OR DISTRESS NOTED AT THIS TIME. VS TAKEN. PT DENIES ANY PAIN AT THIS TIME. IV SITE RAC #22G FLUSHED AND INTACT. PHOTOS TAKEN AND PLACED IN CHART. URINAL AT BEDSIDE. ALL SAFETY MEASURES IN PLACE, BED LOCKED IN LOWEST POSITION. WILL CONTINUE TO MONITOR THROUGHOUT SHIFT
[2022-03-08] MEDS: CITALOPRAM HYDROBROMIDE 20 MG TABLET PO SCH (17:46)
--- NOTE | 2022-03-08 19:30 | NUR ---
BARREL DEDENTING MACHINE OPERATOR OPENING NOTE RECEIVED PT AWAKE IN BED, A/O 3-4 . ON RA > 94%. NO SOB OR DISTRESS NOTED AT THIS TIME. IV ACCESS RAC 20#, INTACT AND PATENT, VSS. PT DENIES ANY PAIN AT THIS TIME. HEAD LACERATION. PATIENT ABLE TO MAKE NEEDS KNOWN. ALL SAFETY MEASURES IN PLACE, BED LOCKED IN LOWEST POSITION. WILL CONTINUE TO MONITOR THROUGHOUT SHIFT
--- NOTE | 2022-03-08 19:31 | NUR ---
RN CLOSING NOTE PATIENT IS AOX3, ABLE TO MAKE NEEDS KNOWN. BREATHING ON RA AT 97%. NO SOB OR DISTRESS NOTED AT THIS TIME. VS WNL. PT DENIES ANY PAIN AT THIS TIME. IV SITE RAC #22G FLUSHED AND INTACT. URINAL AT BEDSIDE. ALL SAFETY MEASURES IN PLACE, BED LOCKED IN LOWEST POSITION. WILL ENDORSE CONTINUITY OF CARE TO ASSISTANT TO THE VICE PRESIDENT.
[2022-03-08 20:00] VITALS: BP 120/60
--- NOTE | 2022-03-08 20:52 | NUR ---
RN NOTE CALLED PATIENTS CANDELARIO, SINCE THE TELE MONITOR WAS READING A PACEMAKER BACKFIRE, HOWEVER THE PATIENTS HISTORY DIDN'T SHOW A HX OF PACEMAKER. SON ADVISED NO PACEMAKER. TELE LEADS AND WIRES CHANGED. SINCE PATIENT IS INDEPENDENT W/BED MOBILITY AND LAYING ON BOX, VISUAL CHECKS Q15 MINUTES.
[2022-03-09] VITALS: BP 150/77
[2022-03-09 04:00] VITALS: BP 155/71
[2022-03-09 06:21] LABS: BASOPHILS % (AUTO) 0.4 % (0.0-2.0); EOSINOPHILS % (AUTO) 2.6 % (0.0-6.0); HEMATOCRIT 37 % (39-51); HEMOGLOBIN 12.4 g/dL (13.5-17.5); LYMPHOCYTES # (AUTO) 1.3 K/uL (0.8-4.8); LYMPHOCYTES % (AUTO) 15.4 % (20.0-44.0); MEAN CORPUSCULAR HGB CONC 34 g/dl (31.0-36.0); MEAN CORPUSCULAR VOLUME 91 fL (80-96); MONOCYTES # (AUTO) 0.8 K/uL (0.1-1.30); MONOCYTES % (AUTO) 8.9 % (2.0-12.0); NEUTROPHILS # (AUTO) 6.3 K/uL (1.8-8.9); NEUTROPHILS % (AUTO) 72.7 % (43.0-81.0); PLATELET COUNT (AUTO) 177 K/uL (150-450); RED BLOOD CELL COUNT(AUTO) 4.03 MIL/uL (4.5-6.0); WHITE BLOOD COUNT (AUTO) 8.6 K/uL (4.3-11.0)
[2022-03-09 06:52] LABS: CALCIUM, SERUM 8.6 mg/dL (8.5-10.1); CARBON DIOXIDE 26 mmol/L (21-32); CHLORIDE 107 mmol/L (98-107); CREATININE 1.4 mg/dL (0.6-1.3); GLUCOSE 115 mg/dL (74-106); MAGNESIUM 2.2 mg/dL (1.8-2.4); PHOSPHORUS 2.9 mg/dL (2.5-4.9); POTASSIUM 4.1 mmol/L (3.5-5.1); SODIUM SERUM 140 mmol/L (136-145); UREA NITROGEN, BLOOD 17 mg/dL (7-18)
--- NOTE | 2022-03-09 07:11 | NUR ---
ADVERTISING REPRESENTATIVE CLOSING NOTE PT AWAKE IN BED, A/O 3-4 . ON RA > 94%. NO SOB OR DISTRESS NOTED AT THIS TIME. TELE MONITOR READING SR, 1ST DEGREE AV BLOCK HR 61, IV ACCESS RAC 20#, INTACT AND PATENT, AND LFA #20G RUNNING NS@75ML/HR. VSS. PT DENIES ANY PAIN AT THIS TIME. PATIENT ABLE TO MAKE NEEDS KNOWN. ALL DUE MEDS GIVEN. ALL SAFETY MEASURES IN PLACE, BED LOCKED IN LOWEST POSITION. WILL ENDORSE TO MORNING SHIFT FOR CONTINUIOUS CARE.
--- NOTE | 2022-03-09 07:15 | NUR ---
RN OPENING NOTE RECEIVED PT AWAKE IN BED, A/O 3-4 . ON ROOM AIR. NO SOB OR DISTRESS NOTED AT THIS TIME. IV ACCESS RAC 20#, INTACT AND PATENT, VSS. PT DENIES ANY PAIN AT THIS TIME. HEAD LACERATION. PATIENT ABLE TO MAKE NEEDS KNOWN. ALL SAFETY MEASURES IN PLACE, BED LOCKED IN LOWEST POSITION.
[2022-03-09 08:00] VITALS: BP 158/68
[2022-03-09] MEDS: CITALOPRAM HYDROBROMIDE 20 MG TABLET PO SCH (08:04)
[2022-03-09] MEDS ORDERED: METOPROLOL SUCCINATE 25 MG TAB.SR.24H PO SCH (09:00)
[2022-03-09] MEDS ORDERED: PANTOPRAZOLE 40 MG TABLET.DR PO SCH (09:00)
[2022-03-09] MEDS ORDERED: MELOXICAM 7.5 MG TABLET PO SCH (09:00)
[2022-03-09] MEDS ORDERED: GABAPENTIN 300 MG CAPSULE PO SCH (09:00)
[2022-03-09 09:54] LABS: THYROID STIMULATING HORMONE 1.89 uIU/mL (0.358-3.74)
[2022-03-09 09:58] VITALS: BP_SYST 132; BP_SYST 145; BP_SYST 146; BP_DIAS 80; BP_DIAS 82
--- NOTE | 2022-03-09 10:02 | NUR ---
VIKTORIA NOTE ORTHOSTATIC BP LAYING 145/80 STANDING 132/77 SITTING 146/82 Addendum: 03/09/22 at 1003 by JAVY AGUILAR RN Amended: Links added.
--- NOTE | 2022-03-09 11:29 | NUR ---
RN NOTE D/C INSTRUCTIONS REVIEWED WITH SON AND PATIENT. PATIENT IS AWARE TO F/UP WITH PCP AND DR LOMELI IN ONE WEEK PROVIDER INFORMATION GIVEN. PATIENT PICKED UP BY SON TAKEN TO FROM [facility]OB[facility] IN STABLE CONDITION.
[2022-03-09] MEDS ORDERED: ATORVASTATIN 40 MG TABLET PO SCH (22:00)
== END 2022-03-09 11:25 | disposition home or self-care (01) | DRG 987 ==
LOC: ER 12:29 → TELE1 14:03
PROVIDERS: ADMIT Internal Medicine; ATTEND Internal Medicine
PROC: 0JQ10ZZ Repair Face Subcutaneous Tissue and Fascia, Open Approach (ICD-10-PCS; principal; 2022-03-08)
DX: G90.8 Other disorders of autonomic nervous system (principal); N17.0 Acute kidney failure with tubular necrosis; E86.0 Dehydration; Z20.822 Contact with and (suspected) exposure to COVID-19; S01.81XA Laceration without foreign body of other part of head, initial encounter; W18.30XA Fall on same level, unspecified, initial encounter; Y92.002 Bathroom of unspecified non-institutional (private) residence as the place of occurrence of the external cause; E78.00 Pure hypercholesterolemia, unspecified; I10 Essential (primary) hypertension; Z86.73 Personal history of transient ischemic attack (TIA), and cerebral infarction without residual deficits; N40.0 Benign prostatic hyperplasia without lower urinary tract symptoms; K80.20 Calculus of gallbladder without cholecystitis without obstruction; K21.9 Gastro-esophageal reflux disease without esophagitis; N32.81 Overactive bladder; E11.42 Type 2 diabetes mellitus with diabetic polyneuropathy; H40.9 Unspecified glaucoma; F32.A Depression, unspecified; F41.9 Anxiety disorder, unspecified; G47.00 Insomnia, unspecified; Z90.79 Acquired absence of other genital organ(s); Z98.890 Other specified postprocedural states; F12.20 Cannabis dependence, uncomplicated; Z79.84 Long term (current) use of oral hypoglycemic drugs; Z79.899 Other long term (current) drug therapy; T44.6X5A Adverse effect of alpha-adrenoreceptor antagonists, initial encounter; Y92.9 Unspecified place or not applicable
CPT/HCPCS: 36415; 70450-TC; 71045-TC; 80048-TC; 80061-TC; 80076-TC; 83735-TC; 84100-TC; 84439-TC; 84443-TC; 84484-TC; 85025-TC; 87081-TC; 93307-TC; 97116-TC; A6403; C9803; G0378; J3490; J7030